=== PATIENT | female | born 1935 | race Caucasian/White ===

== ENCOUNTER 2022-08-29 16:58 | Emergency (ER) | payer MEDICARE, SELFPAY ==
[2022-08-29 17:26] VITALS: BP 185/77; PULSE 87; RESP 20; TEMP 37.1; O2SAT 95; BMI 31.6
[2022-08-29 17:52] LABS: Appearance Urine Clear (Clear); Bilirubin Urine Negative (Negative); Blood Urine Trace-intact (Negative); Color Urine Yellow (Yellow); Glucose Urine Negative (Negative); Ketones Urine Trace (Negative); Leukocyte Esterase Urine 1+ (Negative); Nitrite Urine Negative (Negative); Protein Urine Negative (Negative); Specific Gravity Urine >= 1.030 (1.000-1.030); Urobilinogen Urine 0.2 (0.2-1.0); pH Urine 6.5 (5.0-8.5)
[2022-08-29 18:06] LABS: Bacteria Urine Few; Squamous Epithelial Cell Urine Few (None-Few)
--- NOTE | 2022-08-29 19:15 | ED.FEMALEGU ---
HPI - Female Genitourinary General Chief complaint: Urogenital Problems, Female Stated complaint: UTI Time Seen by Provider: 08/29/22 17:16 History of Present Illness HPI Narrative: This patient is an 87-year-old female who was seen 2 days ago in clinic for urinary tract infection. She states that she gets frequent urinary tract infections partly because she does self catheterize. She had urinalysis done a couple days ago and was started on Cipro to treat a urinary tract infection. Culture results return positive for Pseudomonas and the sensitivities indicate some mild resistance to Cipro. The patient was instructed to come to the ER for further evaluation treatment. She does have numerous allergies including azithromycin, cephalexin, erythromycin, levofloxacin, sulfa, and penicillin. The patient does not indicate any fever and states that she is feeling significantly better. Related Data Home Medications Medication Instructions Recorded Confirmed albuterol sulfate 90 mcg/actuation g inhalation 05/27/22 05/27/22 aerosol inhaler antiarthritic combination no.2 900 mg PO 05/27/22 05/27/22 mg tablet (glucosamine-chondroitin) ascorbate calcium (vitamin C) 500 1 g PO Q6H 05/27/22 05/27/22 mg tablet atorvastatin 10 mg tablet 10 mg PO QDAY 05/27/22 05/27/22 azelastine 137 mcg (0.1 %) nasal ml intranasal 05/27/22 05/27/22 spray aerosol cetirizine 10 mg capsule (Zyrtec) 10 mg PO QDAY PRN 05/27/22 05/27/22 cranberry 500 mg capsule 1,000 mg PO QDAY 05/27/22 05/27/22 diltiazem HCl 180 mg ea PO 05/27/22 05/27/22 tablet,extended release 24 hr (Matzim [place]) fluticasone propionate 50 1 spray intranasal QDAY 05/27/22 05/27/22 mcg/actuation nasal spray,suspension trimethoprim 100 mg tablet 100 mg PO QDAY 05/27/22 05/27/22 Previous Rx's Medication Instructions Recorded nitrofurantoin 100 mg PO BID #14 caps 08/29/22 monohydrate/macrocrystals 100 mg capsule (Macrobid) Allergies Allergy/AdvReac Type Severity Reaction Status Date / Time acetaminophen [From Vicodin] Allergy Mild Rash Verified 05/27/22 12:16 azithromycin [From Zithromax] Allergy Mild Rash Verified 05/27/22 12:16 cephalexin [From Keflex] Allergy Mild Rash Verified 05/27/22 12:16 erythromycin base Allergy Mild Rash Verified 05/27/22 12:16 hydrocodone [From Vicodin] Allergy Mild Rash Verified 05/27/22 12:16 levofloxacin [From Levaquin] Allergy Mild Rash Verified 05/27/22 12:16 Penicillins Allergy Mild Rash Verified 05/27/22 12:16 propoxyphene [From Darvon] Allergy Mild Rash Verified 05/27/22 12:16 sulfur Allergy Mild Rash Uncoded 05/27/22 12:16 Review of Systems Status of ROS: Reports: 10 or more systems reviewed and unremarkable except as noted in History and below Narrative: Constitutional: No fevers, no weight gain or loss. Eyes: No discharge. No vision changes. HENT: No congestion, no sore throat, no ear pain. Cardiovascular: No chest pain, no palpitations. Respiratory: No shortness of breath, no wheezes, no cough. Gastrointestinal: No abdominal pain, no vomiting, no diarrhea. Genitourinary: No dysuria, no hematuria. Dysuria symptoms have markedly improved after taking 2 days of Cipro. Musculoskeletal: Normal range of motion. Skin: No rashes, no pruritis. Neurological: No dizziness, weakness, sensory change, speech change. Endo/Heme/Allergies: No bruising or bleeding. No polydipsia. Pysch: no suicidality, no anxiety, no insomnia. All other systems reviewed and are negative. [facility] Social History Smoking Status: Never smoker Exam Narrative: Exam Narrative: Constitutional: Well-developed, well-nourished, no acute distress. HEENT: Normocephalic, atraumatic. Neck: Normal range of motion. Nontender. Supple. Heart: Regular. No murmurs. Normal rate. Intact distal pulses. Lungs: Clear to auscultation. No chest discomfort. No wheezes, rhonchi, or rales. Abdomen: Normal bowel sounds. Nontender. No rebound tenderness. Genitalia: Deferred. Back: No midline tenderness. Normal range of motion. Extremities: Normal range of motion. No injury. Skin: Intact. No rash. Warm. No erythema or pallor. Neurologic: No altered sensation. No weakness. Alert and oriented. Psychiatric: No suicidality. No anxiety or depression. No insomnia. Nursing notes and vitals signs are reviewed. Const: Vital Signs, click to edit/add: Vital Signs - 24 hr 08/29/22 17:26 Temperature 98.7 F Pulse Rate [Right Pulse Oximeter] 87 Respiratory Rate 20 Blood Pressure [Ri ght Upper Arm] 185/77 H Pulse Oximetry 95 Oxygen Delivery Me thod Room Air Course Vital Signs Vital signs: Initial Vital Signs Temperature 98.7 F 08/29/22 17:26 Temperature Source Temporal Artery Scan 08/29/22 17:26 Pulse Rate 87 08/29/22 17:26 Respiratory Rate 20 08/29/22 17:26 Blood Pressure 185/77 H 08/29/22 17:26 Blood Pressure Mean 113 08/29/22 17:26 Blood Pressure Position Sitting 08/29/22 17:26 Pulse Oximetry 95 08/29/22 17:26 Oxygen Delivery Method 08/29/22 17:26 Vital Signs Temperature 98.7 F 08/29/22 17:26 Pulse Rate 87 08/29/22 17:26 Respiratory Rate 20 08/29/22 17:26 Blood Pressure 185/77 H 08/29/22 17:26 Pulse Oximetry 95 08/29/22 17:26 Oxygen Delivery Method 08/29/22 17:26 Temperature 98.7 F 08/29/22 17:26 Pulse Rate 87 08/29/22 17:26 Respiratory Rate 20 08/29/22 17:26 Blood Pressure 185/77 H 08/29/22 17:26 Pulse Oximetry 95 08/29/22 17:26 Oxygen Delivery Method 08/29/22 17:26 MDM - Female Genitourinary MDM Narrative Medical decision making narrative: This patient has urine culture and sensitivity results indicating Pseudomonas switch is somewhat resistant to Cipro. The patient has been taking Cipro and states that she feels much better. Urinalysis today shows white blood cells at 10-25 per high-powered field. Two days ago this was greater than 100. It seems that Cipro is at least bacterial is static but may not be completely bacterial aside all based on the culture results. The other antibiotic shown on the sensitivity report are all IV antibiotics and all of them are in categories of antibiotics that she is allergic to. IA looked up options in [facility] guide for and a myocardial real treatment and saw no new results except the possibility of using nitrofurantoin. The sensitivity report did show that cephalosporins were successful in treating this particular strain of Pseudomonas. The patient does report an allergy to cephalexin but did agree to try a intramuscular injection of Rocephin. This was accompanied with 25 mg of Benadryl. She tolerates this okay and is okay to return home. I advised her to continue the Cipro but did provide a prescription for Macrobid also. She is instructed to return if worsening symptoms occur. Lab Data Labs: Lab Results 08/29/22 Range/Units 17:46 Urine Color Yellow (Yellow) Urine Appearance Clear (Clear) Urine pH 6.5 (5.0-8.5) Ur Specific [place] >= 1.030 (1.000-1.030) Urine Protein Negative (Negative) Urine Glucose (UA) Negative (Negative) Urine Ketones Trace A (Negative) Urine Blood Trace-intact A (Negative) Urine Nitrite Negative (Negative) Urine Bilirubin Negative (Negative) Urine Urobilinogen 0.2 (0.2-1.0) Ur Leukocyte Esterase 1+ A (Negative) Urine RBC 5-10 A (0-2) Urine WBC 10-25 A (0-5) Ur Squamous Epith Cells Few (None-Few) Urine Bacteria Few A (None) Discharge Plan Discharge Clinical Impression: Urinary tract infection Patient Disposition: Home, Self-Care Condition: Stable Additional Instructions: Continue Cipro as prescribed. Take Macrobid also as prescribed. Follow up with MD or return if worsening. Prescriptions: New nitrofurantoin monohyd/m-cryst [Macrobid] 100 mg capsule 100 mg PO BID Qty: 14 0RF Rx Instructions: must administer with a meal/food No Action trimethoprim 100 mg tablet 100 mg PO QDAY azelastine 137 mcg (0.1 %) aerosol,spray intranasal Label Comments: INHALE 1 SPRAY IN EACH NOSTRIL TWICE DAILY atorvastatin 10 mg tablet 10 mg PO QDAY albuterol sulfate 90 mcg/actuation HFA aerosol inhaler inhalation Label Comments: INHALE 2 PUFFS BY MOUTH EVERY 4 HOURS NEEDED FOR SHORTNESS OF BREATH diltiazem HCl [Matzim LA] 180 mg tablet extended release 24 hr PO Zyrtec 10 mg capsule 10 mg PO QDAY PRN cranberry 500 mg capsule 1,000 mg PO QDAY Rx Instructions: administer with meals glucosamine-chondroitin 900 mg tablet PO fluticasone propionate 50 mcg/actuation spray,suspension 1 spray intranasal QDAY Rx Instructions: administer into each nostril ascorbate calcium (vitamin C) 500 mg tablet 1 g PO Q6H Follow Up/Referrals: Francine Montez MD [Primary Care Provider] - Stand Alone Forms: [employer] Info Instructions
[2022-08-29] MEDS: diphenhydrAMINE 25 MG CAPSULE PO (19:17)
[2022-08-29] MEDS: cefTRIAXone 1 GM VIAL IM (19:20)
[2022-08-29] MEDS: LIDOCAINE 1% 5 ml (pf) 5 ML VIAL 2.1 ML IM (19:20)
== END 2022-08-29 19:45 | disposition home or self-care (01) ==
PROVIDERS: Emergency Provider Emergency Medicine Emergency Medical Services; PCP Family Medicine
DX: N39.0 Urinary tract infection, site not specified (principal)
CPT/HCPCS: 81001; 81015; 87086; 96372; 99284; A9270; J0696

== ENCOUNTER 2023-11-17 10:22 | Outpatient (CLI) | payer MEDICARE, SELFPAY | END 2023-11-17 10:23 | disposition home or self-care (01) | LOC: NFLDREF 11-19 11:24 | PROVIDERS: PCP Family Medicine; Referring Provider Family Medicine; Visit Provider Registered Nurse | DX: N30.00 Acute cystitis without hematuria (principal) | CPT/HCPCS: 87086 ==

== ENCOUNTER 2024-11-16 07:12 | Day surgery (SDC) | payer MEDICARE, SELFPAY ==
[2024-11-16 07:26] VITALS: BMI 30.2
[2024-11-16 07:52] VITALS: BP 194/62; PULSE 69; RESP 12; TEMP 36.5; O2SAT 98
[2024-11-16] MEDS: 0.9 % SODIUM CHLORIDE 500 ML 500 ML 100 ML IV (08:05)
--- NOTE | 2024-11-16 08:36 | P.ANES_ITS ---
Anesthesia Charges Start Date/Time Anesthesia Start Date: 11/16/24 Anesthesia Start Time: 08:07 Stop Date/Time Anesthesia Stop Date: 11/16/24 Anesthesia Stop Time: 09:54 Summary Extremes of Age - Over 70 or under 1: MDA Coding CPT Codes CPT Codes: ANESTH NECK VESSEL SURGERY - 86625 ([id number]) P2 - PATIENT W/MILD SYST DISEASE, QK - HOUSEKEEPER MANAGER 2-4 CNCRNT ANES PROC, QX - INFORMATION SERVICES TECH SVC W/ MD MED DIRECTION Additional Codes: Summary - Extremes of Age - Over 70 or under 1: MDA ([id number])
--- NOTE | 2024-11-16 08:36 | W.ANESCHARGE ---
Anesthesia Charges Start Date/Time Anesthesia Start Date: 11/16/24 Anesthesia Start Time: 08:07 Stop Date/Time Anesthesia Stop Date: 11/16/24 Anesthesia Stop Time: 09:54 Summary Extremes of Age - Over 70 or under 1: MDA Coding CPT Codes CPT Codes: ANESTH NECK VESSEL SURGERY - 84812 ([id number]) P2 - PATIENT W/MILD SYST DISEASE, QK - DIELECTRIC TESTER 2-4 CNCRNT ANES PROC, QX - PASTRY COOK APPRENTICE SVC W/ MD MED DIRECTION Additional Codes: Summary - Extremes of Age - Over 70 or under 1: MDA ([id number])
[2024-11-16] MEDS: BUPIVACAINE 0.25% 30 ML 20 ML INJECTION (08:37)
[2024-11-16] MEDS: LIDOCAINE 1% MDV 20 ML INJECTION (08:37)
--- NOTE | 2024-11-16 09:17 | SUR.OPER ---
Timeout completed for left side, temporal artery, at 0915, second procedure started at 09
[2024-11-16 09:55] VITALS: BP 158/62; PULSE 65; RESP 14; TEMP 36.9; O2SAT 94
--- NOTE | 2024-11-16 09:59 | P.ANES_ITS ---
Anesthesia Charges Start Date/Time Anesthesia Start Date: 11/16/24 Anesthesia Start Time: 08:07 Stop Date/Time Anesthesia Stop Date: 11/16/24 Anesthesia Stop Time: 09:54 Summary Extremes of Age - Over 70 or under 1: FILM AND VIDEO GRAPHICS DESIGNER Coding CPT Codes CPT Codes: ANESTH HEAD/NECK/PTRUNK - 91904 ([id number]) P2 - PATIENT W/MILD SYST DISEASE, QK - CONTOUR STITCHER 2-4 CNCRNT ANES PROC, QX - FILM AND VIDEO GRAPHICS DESIGNER SVC W/ MD MED DIRECTION Additional Codes: Summary - Extremes of Age - Over 70 or under 1: FILM AND VIDEO GRAPHICS DESIGNER ([id number])
--- NOTE | 2024-11-16 09:59 | W.ANESCHARGE ---
Anesthesia Charges Start Date/Time Anesthesia Start Date: 11/16/24 Anesthesia Start Time: 08:07 Stop Date/Time Anesthesia Stop Date: 11/16/24 Anesthesia Stop Time: 09:54 Summary Extremes of Age - Over 70 or under 1: MICROWAVE RADIO TECHNICIAN Coding CPT Codes CPT Codes: ANESTH HEAD/NECK/PTRUNK - 85867 ([id number]) P2 - PATIENT W/MILD SYST DISEASE, QK - PETROLEUM GEOLOGY FACULTY MEMBER 2-4 CNCRNT ANES PROC, QX - MICROWAVE RADIO TECHNICIAN SVC W/ MD MED DIRECTION Additional Codes: Summary - Extremes of Age - Over 70 or under 1: MICROWAVE RADIO TECHNICIAN ([id number])
[2024-11-16 10:10] VITALS: BP 171/66; PULSE 63; RESP 14; O2SAT 96
[2024-11-16 10:25] VITALS: BP 175/68; PULSE 67; RESP 12; O2SAT 95
[2024-11-16 10:40] VITALS: BP 179/57; PULSE 69; RESP 14; TEMP 36.6; O2SAT 95
--- NOTE | 2024-11-16 13:59 | PM.GSCN ---
History of Present Illness Consult details Date Seen: 11/16/24 Consult date: 11/16/24 Narrative: Patient presents for temporal artery biopsy. For the last month she has had pain in her head. It started on the right side, which is the more severe side for her, but is now present on the left as well. 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 That was diagnosed with lab work, no biopsy was performed at that time. She did see Rheumatology last week who recommended a bilateral temporal artery biopsy. She has been on steroids for the last 10 days, which has significantly improved her symptoms. Review of Systems Status of ROS: Reports: 6 or more systems reviewed and unremarkable except as noted in History and below PFSH PFSH Social History Smoking Status: Never smoker Do you use any of these nicotine containing products: None How often do you have a drink containing alcohol: monthly or less Alcohol type: wine How many standard drinks containing alcohol do you have on a typical day: 1 or 2 How often do you have six or more drinks on one occasion: Never AUDIT-C Alcohol total score: 1 Non-prescribed substance use: denies use Caffeine: No Are you using contraception or practicing any form of control: No (menopausal) Meds Home Medications and Allergies Home Medications ?Medication ?Instructions ?Recorded ?Confirmed ?Type albuterol sulfate 90 mcg/actuation g inhalation 05/27/22 11/17/23 History aerosol inhaler antiarthritic combination no.2 900 mg PO 05/27/22 11/17/23 History mg tablet (glucosamine-chondroitin) ascorbate calcium (vitamin C) 500 1 g PO Q6H 05/27/22 11/16/24 History mg tablet atorvastatin 10 mg tablet 10 mg PO QDAY 05/27/22 11/16/24 History azelastine 137 mcg (0.1 %) nasal ml intranasal 05/27/22 11/17/23 History spray cetirizine 10 mg capsule (Zyrtec) 10 mg PO QDAY PRN 05/27/22 11/16/24 History cranberry 500 mg capsule 1,000 mg PO QDAY 05/27/22 11/16/24 History diltiazem HCl 180 mg ea PO 05/27/22 11/17/23 History tablet,extended release 24 hr (Matzim [place]) fluticasone propionate 50 1 spray intranasal QDAY 05/27/22 11/16/24 History mcg/actuation nasal spray,suspension trimethoprim 100 mg tablet 100 mg PO QDAY 05/27/22 11/16/24 History losartan 50 mg tablet 50 mg PO DAILY 11/17/23 11/16/24 History nitrofurantoin macrocrystal 100 mg 100 mg PO BID 11/15/24 11/15/24 History capsule prednisone 20 mg tablet 20 mg PO BID 11/16/24 11/16/24 History Allergies Allergy/AdvReac Type Severity Reaction Status Date / Time acetaminophen (From Vicodin) Allergy Mild Rash Verified 11/17/23 10:47 azithromycin (From Zithromax) Allergy Mild Rash Verified 11/17/23 10:47 cephalexin (From Keflex) Allergy Mild Rash Verified 11/17/23 10:47 erythromycin base Allergy Mild Rash Verified 11/17/23 10:47 hydrocodone (From Vicodin) Allergy Mild Rash Verified 11/17/23 10:47 levofloxacin (From Levaquin) Allergy Mild Rash Verified 11/17/23 10:47 Penicillins Allergy Mild Rash Verified 11/17/23 10:47 propoxyphene (From Darvon) Allergy Mild Rash Verified 11/17/23 10:47 sulfur Allergy Mild Rash Uncoded 11/17/23 10:47 Exam Narrative: Exam Narrative: General: Alert and oriented, no acute distress Respiratory: Equal breath rise bilaterally, maintained on room air CV: Well perfused HEENT: Bilateral palpation with temporal tenderness, easily palpated artery bilaterally. Const: Vital Signs, click to edit/add: Vital Signs - 24 hr 11/16/24 07:52 11/16/24 09:55 11/16/24 10:10 Temperature 97.7 F 98.5 F Pulse Rate 69 65 63 Respiratory Rate 12 14 14 Blood Pressure 194/62 H 158/62 H 171/66 H Pulse Oximetry 98 94 96 Oxygen Delivery Me thod Room Air Room Air Room Air 11/16/24 10:25 11/16/24 10:40 Temperature 97.9 F Pulse Rate 67 69 Respiratory Rate 12 14 Blood Pressure 175/68 H 179/57 H Pulse Oximetry 95 95 Oxygen Delivery Me thod Room Air Room Air Results Labs Labs: CRP elevated at 12.7, ESR 44 Progress Note:A&P Assessment and plan (1) Temporal arteritis: Status: Acute Assessment and Plan: Patient is an 89-year-old female who presents with clinical workup suspicious for temporal arteritis. She has been seen by Rheumatology who recommended a bilateral temporal artery biopsy. Risks and benefits of the procedure were discussed at length with the patient. All questions were addressed with her agreeing to proceed. Plan -OR for bilateral temporal artery biopsy
--- NOTE | 2024-11-16 14:06 | P.GSOP_ITS ---
Operative Note Date of procedure: 11/16/24 Pre-op diagnosis: Giant cell arteritis Post-op diagnosis: Same Type of Procedure: Bilateral temporal artery biopsy Indications: Patient presents for bilateral temporal artery biopsy. Clinical workup is suspicious for temporal arteritis. Patient has been on steroids for the last 10 days with some clinical improvement. Risks and benefits of operative intervention were discussed at length with the patient. Risks included but was not limited to: Bleeding, infection, risk of damage to surrounding structures, possible need for additional procedures and postoperative complications such as pneumonia, pulmonary emboli or [place]. All questions and concerns were addressed with the patient agreeing to proceed. Procedure Description: After discussing the risks and benefits of the procedure, the patient signed informed consent.? The operative site was marked and the patient was brought to the operating room and placed on the operating table in supine position.? Care was taken to pad the patient's pressure points.?? The patient was then given sed ation by anesthesia.?? The operative site was then prepped and draped in the usual sterile fashion.? A time-out was then performed. Attention was first directed to the right side. The handheld Doppler was utilized to alicia out the course of the temporal artery. Local anesthetic was utilized to numb up the area. A 15 blade was used to make an approximate 5 cm incision. Cautery was then used to divide the subcutaneous tissue and assure hemostasis. The artery was visualized within the temporoparietal fascia, which was entered with sharp dissection. A proximal portion of the artery was dissected out and ligated with 3 0 Vicryl. The dissection was then carried distally for approximately 2.5 cm and ligated. The specimen was then carefully removed, trying to limit manipulation of the vessel itself, and passed off to the back table. Again hemostasis was assured and the incision closed with interrupted 3 0 Vicryl and running 4 Monocryl. We then redraped to perform the procedure on the left side. Prior to the prep a handheld Doppler was utilized to alicia out the course of the temporal artery. After the area was prepped and draped Local anesthetic was utilized to numb up the area. A 15 blade was used to make an approximate 5 cm incision. Cautery was then used to divide the subcutaneous tissue and assure hemostasis. The artery was visualized within the temporoparietal fascia, which was entered with sharp dissection. A proximal portion of the artery was dissected out and ligated with 3 0 Vicryl. The dissection was then carried distally for approximately 2.5 cm and ligated. The specimen was then carefully removed, trying to limit manipulation of the vessel itself, and passed off to the back table. Again hemostasis was assured and the incision closed with interrupted 3 0 Vicryl and running 4 Monocryl. Sterile dressings were then applied. ? The patient was then woken and transported to the recovery area in stable condition. ? The patient tolerated the procedure well. Findings: Bilateral temporal artery biopsy. Anesthesia: MAC and local Surgeon: Amanda Kunz MD Estimated blood loss (mL): 5 Additional Specimen Information: 1. Right temporal artery 2. Left temporal artery Condition: stable Disposition: same day
== END 2024-11-16 10:51 | disposition home or self-care (01) ==
PROVIDERS: PCP Family Medicine; Visit Provider Surgery
PROC: (CPT 37609; principal; 2024-11-16 08:30)
DX: M31.6 Other giant cell arteritis (principal); R51.9 Headache, unspecified
CPT/HCPCS: 37609; 00300; 00352; 76998; 99100; J2003; J0665; J2704; J3490; J7030